=== PATIENT | male | born 1955 | race Hispanic/Latino ===

== ENCOUNTER 2019-02-05 11:41 | Emergency (ER) | payer OTHER ==
--- NOTE | 2019-02-05 13:42 | ULT ---
US Venous Doppler Lt Unilat History: Edema Comparison: None. Findings: Real-time grayscale, color, and spectral analysis of the left lower extremity venous system was performed. The common femoral, femoral, proximal portions greater saphenous and deep femoral veins as well as the popliteal and posterior tibial veins were interrogated. Normal flow, augmentation, and compression. Impression: No deep venous thrombosis. Mild lower extremity edema.
== END 2019-02-05 13:59 | disposition home or self-care (01) ==
LOC: SCSER 11:41
DX: M79.605 Pain in left leg (principal); F17.210 Nicotine dependence, cigarettes, uncomplicated; E78.5 Hyperlipidemia, unspecified; I10 Essential (primary) hypertension; Z71.6 Tobacco abuse counseling
CPT/HCPCS: 99406

== ENCOUNTER 2019-04-11 09:20 | Emergency (ER) | payer OTHER ==
[2019-04-11 10:30] LABS: #Basophils 0.1 thou/uL (0.0-0.2); #Eosinphils 0.2 thou/uL (0.0-0.7); #Lymphocytes 1.9 thou/uL (1.20-3.40); #Monocytes 0.7 thou/uL (0.11-0.59); #Neutrophils 8.4 thou/uL (1.40-6.50); %Basophils 0.5 % (0.0-1.0); %Eosinophils 1.7 % (0.0-10.0); %Lymphocytes 16.6 % (21.0-51.0); %Monocytes 6.3 % (0.0-10.0); %Neutrophils 74.8 % (42.0-75.0); Mean Corpuscular Hemoglobin 31.8 pg (27.0-31.0); Mean Corpuscular Volume 93.4 fL (78.0-98.0); Mean Platelet Volume 7.4 fL (7.4-10.4); Platelet Count 355 thou/uL (130-400); RBC Distribution Width 11.9 % (11.5-14.5); Red Blood Cell (RBC) Count 3.78 mill/uL (4.70-6.10); White Blood Cell (WBC) Count 11.2 thou/uL (4.8-10.8)
[2019-04-11 10:41] LABS: Anion Gap 11 mmol/L (10-20); BUN (Urea Nitrogen) 9 mg/dL (8.4-25.7); Calc. Creatinine Clearance 0 mL/min (70-130); Calcium 8.9 mg/dL (7.8-10.44); Carbon Dioxide 26 mmol/L (23-31); Chloride 104 mmol/L (98-107); Estimated GFR-MDRD Greater than 90; Glucose 125 mg/dL (80-115); Potassium 3.8 mmol/L (3.5-5.1); Sodium 137 mmol/L (136-145)
[2019-04-11 11:09] LABS: Bilirubin Small (Negative); Blood, Urine Large (Negative); Glucose, Urine (Dipstick) Negative (Negative); Leukocyte Trace (Negative); Nitrite Negative (Negative); Protein, Urine (Dipstick) > or equal to 300 mg/dL (Neg-Trace)
[2019-04-11 11:14] LABS: Clarity Cloudy (Clear)
[2019-04-11 11:27] LABS: RBC/HPF Greater than 50 HPF (0-3)
[2019-04-11 11:28] LABS: Bacteria/HPF 2+ HPF (None Seen); Squamous Epithelial None Seen HPF (0-3)
[2019-04-11] MEDS ORDERED: Nitrofurantoin Macrocrystal 50 MG CAP PO SCH (12:15)
== END 2019-04-11 12:09 ==
LOC: ERS 09:20
DX: N39.0 Urinary tract infection, site not specified (principal); E78.5 Hyperlipidemia, unspecified; I10 Essential (primary) hypertension; Z87.891 Personal history of nicotine dependence
CPT/HCPCS: 36415; 51702; 80048; 81003; 81015; 85025; 87086

== ENCOUNTER 2021-05-03 08:35 | Inpatient (IN) | payer MEDICARE ==
[2021-05-03] MEDS ORDERED: Fentanyl 100 MCG/2 ML VIAL ONE (09:09)
[2021-05-03] MEDS ORDERED: Acetaminophen 500 MG TAB ONE (09:09)
[2021-05-03 09:49] LABS: Hemoglobin 17.1 g/dL (14.0-18.0); Mean Corpuscular HGB CONC 33.2 g/dL (32.0-36.0); Mean Corpuscular Hemoglobin 30.1 pg (27.0-31.0); Mean Corpuscular Volume 90.5 fL (78.0-98.0); RBC Distribution Width 12.6 % (11.5-14.5); Red Blood Cell (RBC) Count 5.67 mill/uL (4.70-6.10)
[2021-05-03 10:11] LABS: #Eosinphils 0.1 thou/uL (0.0-0.7); #Monocytes 1.5 thou/uL (0.11-0.59); #Neutrophils 12.7 thou/uL (1.40-6.50); %Basophils 0.2 % (0.0-1.0); %Eosinophils 0.6 % (0.0-10.0); %Lymphocytes 12.5 % (21.0-51.0); %Monocytes 9.2 % (0.0-10.0); %Neutrophils 77.6 % (42.0-75.0); Mean Platelet Volume 8.6 fL (7.4-10.4); Platelet Count 260 thou/uL (130-400); Platelet Morphology Comment Appears Adequate; White Blood Cell (WBC) Count 16.4 thou/uL (4.8-10.8)
[2021-05-03 10:56] LABS: Albumin 4.1 g/dL (3.4-4.8)
[2021-05-03 10:57] LABS: Chloride 102 mmol/L (98-107); Potassium 4.6 mmol/L (3.5-5.1); Sodium 136 mmol/L (136-145)
[2021-05-03 10:58] LABS: Calcium 9.1 mg/dL (7.8-10.44); Globulin 2.9 g/dL (2.4-3.5); Glucose 218 mg/dL (80-115)
[2021-05-03 11:00] LABS: Anion Gap 15 mmol/L (10-20); Bilirubin, Total 1.2 mg/dL (0.2-1.2); Carbon Dioxide 24 mmol/L (23-31)
[2021-05-03 11:01] LABS: Alkaline Phosphatase 111 U/L (40-110)
[2021-05-03 11:02] LABS: Calc. Creatinine Clearance 0 mL/min (70-130)
[2021-05-03 11:03] LABS: AST (SGOT) 14 U/L (5-34); BUN (Urea Nitrogen) 19 mg/dL (8.4-25.7)
[2021-05-03 11:04] LABS: ALT (SGPT) 27 U/L (8-55)
[2021-05-03] MEDS ORDERED: Lorazepam 2 MG/ML VIAL SLOW IVP PRN (11:20)
[2021-05-03] MEDS ORDERED: Dextrose 5% in Water 1,000 ML IV PRN ×2 (11:20→15:52)
[2021-05-03] MEDS ORDERED: Dextrose 50% Abboject 50 ML SYRINGE SLOW IVP PRN ×2 (11:20→15:52)
[2021-05-03] MEDS ORDERED: Ondansetron PF 4 MG/2 ML Vial IVP PRN (11:20)
[2021-05-03] MEDS ORDERED: Morphine 2 MG/ML VIAL SLOW IVP PRN (11:20)
[2021-05-03] MEDS ORDERED: traMADol HCl 50 MG TAB PO PRN (11:27)
[2021-05-03 16:41] LABS: SARS-CoV-2 NAA Rapid Test Not Detected (NotDetected)
[2021-05-03 17:29] VITALS: BMI 24.7
[2021-05-03] MEDS: Acetaminophen 500 MG TAB PO SCH ×3 (17:43→23:26)
[2021-05-03] MEDS: traMADol HCl 50 MG TAB PO SCH ×2 (17:44→19:36)
[2021-05-03] MEDS: Famotidine/PF 20 mg/2ml Vial SLOW IVP SCH (21:19)
[2021-05-04] MEDS: traMADol HCl 50 MG TAB PO SCH ×4 (00:03→16:46)
[2021-05-04] MEDS: Acetaminophen 500 MG TAB PO SCH ×4 (05:10→23:38)
[2021-05-04] MEDS: HumaLOG 300 UNITS/3 ML VIAL SC PRN (05:11)
[2021-05-04 05:18] LABS: #Basophils 0.1 thou/uL (0.0-0.2); #Eosinphils 0.1 thou/uL (0.0-0.7); #Lymphocytes 2.8 thou/uL (1.20-3.40); #Monocytes 1.2 thou/uL (0.11-0.59); #Neutrophils 7.5 thou/uL (1.40-6.50); %Basophils 0.5 % (0.0-1.0); %Lymphocytes 24.4 % (21.0-51.0); %Monocytes 9.9 % (0.0-10.0); %Neutrophils 64.3 % (42.0-75.0); Hemoglobin 16.3 g/dL (14.0-18.0); Mean Corpuscular HGB CONC 32.1 g/dL (32.0-36.0); Mean Corpuscular Hemoglobin 29.3 pg (27.0-31.0); Mean Corpuscular Volume 91.3 fL (78.0-98.0); Mean Platelet Volume 8.2 fL (7.4-10.4); Platelet Count 259 thou/uL (130-400); RBC Distribution Width 12.5 % (11.5-14.5); Red Blood Cell (RBC) Count 5.57 mill/uL (4.70-6.10); White Blood Cell (WBC) Count 11.6 thou/uL (4.8-10.8)
[2021-05-04 05:37] LABS: Anion Gap 12 mmol/L (10-20); BUN (Urea Nitrogen) 22 mg/dL (8.4-25.7); Calc. Creatinine Clearance 91 mL/min (70-130); Calcium 9.5 mg/dL (7.8-10.44); Carbon Dioxide 25 mmol/L (23-31); Chloride 104 mmol/L (98-107); Glucose 183 mg/dL (80-115); Potassium 4.1 mmol/L (3.5-5.1); Sodium 137 mmol/L (136-145)
[2021-05-04] MEDS ORDERED: hydrOXYzine 10 MG TAB PO PRN (06:50)
[2021-05-04] MEDS ORDERED: Aspirin Chewable 81 MG TAB PO SCH (09:00)
[2021-05-04] MEDS: Amlodipine 10 MG TAB PO SCH (12:13)
[2021-05-04] MEDS: Atorvastatin Calcium 40 MG TAB PO SCH (12:13)
[2021-05-04] MEDS: Citalopram 20 MG TAB PO SCH (12:14)
[2021-05-04] MEDS: Baclofen 10 MG TAB PO SCH ×3 (12:14→23:38)
[2021-05-04] MEDS: Famotidine/PF 20 mg/2ml Vial SLOW IVP SCH ×2 (12:14→23:38)
[2021-05-04] MEDS ORDERED: Fentanyl 100 MCG/2 ML VIAL ONE ×2 (19:43→22:14)
[2021-05-04] MEDS ORDERED: Phenylephrine 10 MG/ML VIAL ONE (20:08)
[2021-05-04] MEDS ORDERED: Glycopyrrolate 0.2 MG/ML 5 ML SYRINGE ONE (20:37)
[2021-05-04] MEDS ORDERED: PROPOFOL 200 MG/20 ML VIAL ONE (20:37)
[2021-05-04] MEDS ORDERED: Labetalol HCl 100 MG/20 ML VIAL ONE (20:37)
[2021-05-04] MEDS ORDERED: Rocuronium Bromide 10 MG/ML (10ML VIAL) ONE (20:37)
[2021-05-04] MEDS ORDERED: Ketorolac Tromethamine 30 MG/ML VIAL ONE (20:37)
[2021-05-04] MEDS ORDERED: Lidocaine 1% PF 5 ML VIAL ONE (20:37)
[2021-05-04] MEDS ORDERED: Dexamethasone 20 MG/5 ML VIAL ONE (20:37)
[2021-05-04] MEDS ORDERED: Esmolol 100 MG/10 ML VIAL ONE (20:37)
[2021-05-04] MEDS ORDERED: Ondansetron PF 4 MG/2 ML Vial ONE (20:37)
[2021-05-04] MEDS ORDERED: Neomycin-Polymyxin 1 ML AMP ONE (21:02)
[2021-05-04] MEDS ORDERED: HYDROmorphone 2 MG/ML VIAL ONE (21:14)
[2021-05-04] MEDS ORDERED: Tranexamic Acid 1,000 MG/10 ML VIAL ONE (21:14)
[2021-05-04] MEDS ORDERED: diphenhydrAMINE 25 MG CAP PO PRN (22:07)
[2021-05-04] MEDS ORDERED: Morphine 2 MG/ML VIAL SLOW IVP PRN (22:07)
[2021-05-04] MEDS ORDERED: Zolpidem Tartrate 5 MG TAB PO PRN (22:07)
[2021-05-04] MEDS ORDERED: Promethazine HCl 25 MG/ML VIAL IM PRN ×2 (22:07→22:08)
[2021-05-04] MEDS ORDERED: traMADol HCl 50 MG TAB PO PRN (22:07)
[2021-05-04] MEDS ORDERED: Morphine 4 MG/ML VIAL SLOW IVP PRN (22:07)
[2021-05-04] MEDS ORDERED: Ondansetron PF 4 MG/2 ML Vial IVP PRN (22:07)
[2021-05-04] MEDS ORDERED: Acetaminophen 325 MG TAB PO PRN (22:07)
[2021-05-04] MEDS ORDERED: HYDROmorphone 2 MG/ML VIAL SLOW IVP PRN (22:08)
[2021-05-04] MEDS ORDERED: PACU-Morphine 4MG/ML VIAL SLOW IVP PRN (22:08)
[2021-05-04] MEDS ORDERED: Promethazine HCl 25 MG/ML VIAL IVPB PRN (22:08)
[2021-05-04] MEDS ORDERED: Ondansetron HCl/PF 4 MG/2 ML Vial IVP PRN (22:08)
[2021-05-05] MEDS: traMADol HCl 50 MG TAB PO SCH ×5 (00:26→23:58)
[2021-05-05] MEDS: Acetaminophen 500 MG TAB PO SCH ×4 (05:03→21:12)
[2021-05-05] MEDS: CEFAZOLIN 2 GM in Premix Bag 1 BAG IVPB SCH ×2 (05:04→14:23)
[2021-05-05] MEDS: HumaLOG 300 UNITS/3 ML VIAL SC PRN ×3 (05:23→21:21)
[2021-05-05 06:07] LABS: Hemoglobin 15.2 g/dL (14.0-18.0); Mean Corpuscular HGB CONC 34.4 g/dL (32.0-36.0); Mean Corpuscular Hemoglobin 31.6 pg (27.0-31.0); Mean Platelet Volume 8.3 fL (7.4-10.4); Platelet Count 254 thou/uL (130-400); RBC Distribution Width 12.3 % (11.5-14.5); White Blood Cell (WBC) Count 12.5 thou/uL (4.8-10.8)
[2021-05-05] MEDS ORDERED: Acetaminophen 325 MG TAB PO PRN (06:24)
[2021-05-05] MEDS: Senokot S 8.6-50 MG TAB PO SCH ×2 (08:24→21:12)
[2021-05-05] MEDS: Famotidine/PF 20 mg/2ml Vial SLOW IVP SCH ×2 (08:24→21:12)
[2021-05-05] MEDS: Amlodipine 10 MG TAB PO SCH (08:25)
[2021-05-05] MEDS: Atorvastatin Calcium 40 MG TAB PO SCH (08:25)
[2021-05-05] MEDS: Baclofen 10 MG TAB PO SCH ×3 (08:25→21:12)
[2021-05-05] MEDS: Multivitamin W/ Minerals 1 TAB PO SCH (08:25)
[2021-05-05] MEDS: metFORMIN 500 MG TAB PO SCH ×2 (08:25→17:01)
[2021-05-05] MEDS: Clopidogrel Bisulfate 75 MG TAB PO SCH (08:25)
[2021-05-05] MEDS: Citalopram 20 MG TAB PO SCH (08:25)
[2021-05-05] MEDS: Ferrous Gluconate 324 MG TAB PO SCH ×2 (08:25→21:12)
[2021-05-05] MEDS ORDERED: Aspirin 81 mg Enteric Coated Tablet PO SCH (09:00)
[2021-05-05] MEDS ORDERED: Calcium Carbonate 500 MG ChewTAB PO PRN (16:42)
[2021-05-06] MEDS: Acetaminophen 500 MG TAB PO SCH ×3 (04:47→16:48)
[2021-05-06] MEDS: traMADol HCl 50 MG TAB PO SCH ×3 (05:29→20:14)
[2021-05-06] MEDS: HumaLOG 300 UNITS/3 ML VIAL SC PRN (05:30)
[2021-05-06 06:30] LABS: #Eosinphils 0.1 thou/uL (0.0-0.7); #Lymphocytes 2.8 thou/uL (1.20-3.40); #Monocytes 1.6 thou/uL (0.11-0.59); #Neutrophils 8.4 thou/uL (1.40-6.50); %Basophils 0.4 % (0.0-1.0); %Eosinophils 0.4 % (0.0-10.0); %Lymphocytes 21.5 % (21.0-51.0); %Neutrophils 65.7 % (42.0-75.0); Hemoglobin 14.9 g/dL (14.0-18.0); Mean Corpuscular HGB CONC 33.9 g/dL (32.0-36.0); Mean Corpuscular Hemoglobin 31.2 pg (27.0-31.0); Mean Platelet Volume 8.7 fL (7.4-10.4); Platelet Count 257 thou/uL (130-400); RBC Distribution Width 12.2 % (11.5-14.5); Red Blood Cell (RBC) Count 4.78 mill/uL (4.70-6.10); White Blood Cell (WBC) Count 12.8 thou/uL (4.8-10.8)
[2021-05-06] MEDS: Senokot S 8.6-50 MG TAB PO SCH (08:14)
[2021-05-06] MEDS: Clopidogrel Bisulfate 75 MG TAB PO SCH (08:14)
[2021-05-06] MEDS: Baclofen 10 MG TAB PO SCH ×2 (08:15→16:48)
[2021-05-06] MEDS: Citalopram 20 MG TAB PO SCH (08:15)
[2021-05-06] MEDS: metFORMIN 500 MG TAB PO SCH ×2 (08:15→18:00)
[2021-05-06] MEDS: Amlodipine 10 MG TAB PO SCH (08:15)
[2021-05-06] MEDS: Ferrous Gluconate 324 MG TAB PO SCH (08:15)
[2021-05-06] MEDS: Multivitamin W/ Minerals 1 TAB PO SCH (08:15)
[2021-05-06] MEDS: Famotidine/PF 20 mg/2ml Vial SLOW IVP SCH (08:16)
[2021-05-06] MEDS: Atorvastatin Calcium 40 MG TAB PO SCH (10:43)
[2021-05-06 16:12] VITALS: BP 118/76; TEMP 98
[2021-05-06] MEDS ORDERED: traMADol HCl 50 MG TAB PO PRN (16:49)
== END 2021-05-06 20:18 | DRG 522 ==
LOC: ERS 08:35 → SURG B 11:20
PROVIDERS: ADMIT Specialist; ATTEND Specialist
PROC: 0SRS0JA Replacement of Left Hip Joint, Femoral Surface with Synthetic Substitute, Uncemented, Open Approach (ICD-10-PCS; principal; 2021-05-04)
DX: S72.002A Fracture of unspecified part of neck of left femur, initial encounter for closed fracture (principal); I69.354 Hemiplegia and hemiparesis following cerebral infarction affecting left non-dominant side; I25.10 Atherosclerotic heart disease of native coronary artery without angina pectoris; W18.30XA Fall on same level, unspecified, initial encounter; Z79.82 Long term (current) use of aspirin; Z79.84 Long term (current) use of oral hypoglycemic drugs; Z79.02 Long term (current) use of antithrombotics/antiplatelets; Z79.899 Other long term (current) drug therapy; Z95.5 Presence of coronary angioplasty implant and graft; Z98.890 Other specified postprocedural states; Y92.129 Unspecified place in nursing home as the place of occurrence of the external cause
CPT/HCPCS: 36415; 36416; 70450; 71045; 80048; 80053; 83605; 84484; 85025; 85027; 87040; 93005; 93306; G0390; J0690; J1100; J1170; J1815; J1885; J2370; J2405; J2704; J3010; S0028; U0002

== ENCOUNTER 2023-05-08 20:08 | Inpatient (IN) | payer MEDICARE ==
[2023-05-08] MEDS ORDERED: LORazepam 2 MG/ML SYR.(CARPUJECT) ONE (20:25)
[2023-05-08] MEDS ORDERED: levETIRAcetam 500 MG/5 ML VIAL ONE (20:31)
[2023-05-08 20:45] LABS: #Basophils 0.1 thou/uL (0.0-0.2); #Eosinphils 0.3 thou/uL (0.0-0.7); #Monocytes 1.2 thou/uL (0.11-0.59); %Basophils 0.6 % (0.0-1.0); %Eosinophils 1.8 % (0.0-10.0); %Lymphocytes 36.7 % (21.0-51.0); %Monocytes 8.5 % (0.0-10.0); %Neutrophils 51.8 % (42.0-75.0); Hematocrit 47.9 % (42.0-52.0); Hemoglobin 15.7 g/dL (14.0-18.0); Mean Corpuscular HGB CONC 32.8 g/dL (32.0-36.0); Mean Corpuscular Hemoglobin 29.3 pg (27.0-31.0); Mean Corpuscular Volume 89.4 fl (78.0-98.0); Mean Platelet Volume 10.5 fL (7.4-10.4); Platelet Count 330 10x3/uL (130-400); RBC Distribution Width 13.5 % (11.5-14.5); Red Blood Cell (RBC) Count 5.36 mill/uL (4.70-6.10); White Blood Cell (WBC) Count 13.5 10x3/uL (4.8-10.8)
[2023-05-08 21:10] LABS: ALT (SGPT) 23 U/L (8-55); AST (SGOT) 13 U/L (5-34); Albumin 4.3 g/dL (3.4-4.8); Alkaline Phosphatase 117 U/L (40-110); Anion Gap 18 mmol/L (10-20); BUN (Urea Nitrogen) 10 mg/dL (8.4-25.7); Bilirubin, Total 0.4 mg/dL (0.2-1.2); Calc. Creatinine Clearance 0 mL/min (70-130); Calcium 9.6 mg/dL (7.8-10.44); Carbon Dioxide 20 mmol/L (23-31); Chloride 104 mmol/L (98-107); Estimated GFR 96; Glucose 144 mg/dL (80-115); Potassium 3.2 mmol/L (3.5-5.1); Protein, Total 7.3 g/dL (5.8-8.1); Sodium 139 mmol/L (136-145)
[2023-05-08 21:28] LABS: Bacteria/HPF 2+ HPF (None Seen); Bilirubin Negative (Negative); Blood, Urine 1+ (Negative); CAUTI Indications for Culture Fever or rigors; Clarity Turbid (Clear); Glucose, Urine (Dipstick) Normal (Negative); Ketone, Urine Negative (Negative); Leukocyte 500 Leu/uL (Negative); Nitrite Negative (Negative); Protein, Urine (Dipstick) 30 mg/dL (Neg-Trace); Specific Gravity, Urine 1.015 (1.002-1.036); Squamous Epithelial None Seen HPF (0-3); Urobilinogen Normal mg/dL (Less than 2); WBC/HPF Greater than 50 HPF (0-3)
[2023-05-08 21:29] LABS: Urine Culture Reflex Yes Yes
[2023-05-08] MEDS ORDERED: cefTRIAXone (ROCEPHIN) 2 GM VIAL ONE (21:32)
[2023-05-08] MEDS ORDERED: Lorazepam 2 MG/ML VIAL SLOW IVP PRN (23:44)
[2023-05-08] MEDS ORDERED: Sodium Chloride 0.9% 1,000 ML IV SCH (23:45)
[2023-05-08 23:52] VITALS: BMI 27.8
[2023-05-09] MEDS ORDERED: Ondansetron PF 4 MG/2 ML Vial IVP PRN (00:20)
[2023-05-09] MEDS ORDERED: Ondansetron ODT 4 MG TAB PO PRN (00:20)
[2023-05-09] MEDS ORDERED: Acetaminophen 325 MG TAB PO PRN (00:20)
[2023-05-09] MEDS ORDERED: Electrolyte Replacement Protocol 1 EACH FS SCH (00:24)
[2023-05-09] MEDS ORDERED: Lactated Ringer's 1,000 ML IV SCH (00:30)
[2023-05-09 00:43] LABS: Hemoglobin A1c 7.1 % (4.0-6.0)
[2023-05-09 00:50] LABS: Lactic Acid 0.8 mmol/L (0.5-2.2)
[2023-05-09 06:26] LABS: #Basophils 0.1 thou/uL (0.0-0.2); #Eosinphils 0.2 thou/uL (0.0-0.7); #Monocytes 0.9 thou/uL (0.11-0.59); #Neutrophils 6.5 thou/uL (1.40-6.50); %Basophils 0.6 % (0.0-1.0); %Eosinophils 1.6 % (0.0-10.0); %Lymphocytes 28.8 % (21.0-51.0); %Monocytes 8.4 % (0.0-10.0); Hemoglobin 14.2 g/dL (14.0-18.0); Mean Corpuscular Hemoglobin 29.3 pg (27.0-31.0); Mean Corpuscular Volume 88.8 fl (78.0-98.0); Mean Platelet Volume 10.5 fL (7.4-10.4); Platelet Count 286 10x3/uL (130-400); RBC Distribution Width 13.5 % (11.5-14.5); Red Blood Cell (RBC) Count 4.84 mill/uL (4.70-6.10); White Blood Cell (WBC) Count 10.8 10x3/uL (4.8-10.8)
[2023-05-09 06:52] LABS: Anion Gap 11 mmol/L (10-20); BUN (Urea Nitrogen) 8 mg/dL (8.4-25.7); Calc. Creatinine Clearance 112 mL/min (70-130); Carbon Dioxide 29 mmol/L (23-31); Chloride 107 mmol/L (98-107); Estimated GFR 99; Glucose 111 mg/dL (80-115); Potassium 3.5 mmol/L (3.5-5.1); Sodium 143 mmol/L (136-145)
[2023-05-09] MEDS: Famotidine/PF 20 mg/2ml Vial SLOW IVP SCH ×2 (07:36→21:34)
[2023-05-09] MEDS: Famotidine 20 MG TAB PO SCH ×2 (07:53→21:34)
[2023-05-09] MEDS: levETIRAcetam 500 MG TAB PO SCH ×2 (07:53→21:34)
[2023-05-09] MEDS ORDERED: Potassium Chloride 20 MEQ TAB PO SCH (08:00)
[2023-05-09] MEDS ORDERED: Iopamidol-370 76% 500 ML MDV (1 ML CHARGE) ONE (08:54)
[2023-05-09] MEDS: cefTRIAXone\\ROCEPHIN 1 GM in Sodium Chloride 0.9% 100 ML IVPB SCH (21:35)
[2023-05-10] MEDS: Atorvastatin Calcium 40 MG TAB PO SCH (08:26)
[2023-05-10] MEDS: Aspirin 81 mg Enteric Coated Tablet PO SCH (08:26)
[2023-05-10] MEDS: Amlodipine 10 MG TAB PO SCH (08:26)
[2023-05-10] MEDS: Citalopram 20 MG TAB PO SCH (08:28)
[2023-05-10] MEDS: Famotidine 20 MG TAB PO SCH ×2 (08:28→20:16)
[2023-05-10] MEDS: Clopidogrel Bisulfate 75 MG TAB PO SCH (08:28)
[2023-05-10] MEDS: levETIRAcetam 500 MG TAB PO SCH ×2 (08:28→20:15)
[2023-05-10] MEDS: Famotidine/PF 20 mg/2ml Vial SLOW IVP SCH ×2 (08:29→20:24)
[2023-05-10] MEDS ORDERED: metFORMIN 500 MG TAB PO SCH (17:00)
[2023-05-10] MEDS: cefTRIAXone\\ROCEPHIN 1 GM in Sodium Chloride 0.9% 100 ML IVPB SCH (20:16)
[2023-05-11] MEDS ORDERED: Docusate 100 MG CAP PO PRN (07:28)
[2023-05-11] MEDS ORDERED: Lorazepam 2 MG/ML VIAL SLOW IVP PRN (07:30)
[2023-05-11 07:58] LABS: #Basophils 0.1 thou/uL (0.0-0.2); #Eosinphils 0.2 thou/uL (0.0-0.7); #Monocytes 0.6 thou/uL (0.11-0.59); #Neutrophils 4.6 thou/uL (1.40-6.50); %Basophils 0.6 % (0.0-1.0); %Eosinophils 2.3 % (0.0-10.0); %Lymphocytes 30.2 % (21.0-51.0); %Monocytes 8.2 % (0.0-10.0); %Neutrophils 58.4 % (42.0-75.0); Hemoglobin 14.3 g/dL (14.0-18.0); Mean Corpuscular HGB CONC 33.3 g/dL (32.0-36.0); Mean Corpuscular Hemoglobin 29.5 pg (27.0-31.0); Mean Corpuscular Volume 88.7 fl (78.0-98.0); Mean Platelet Volume 10.4 fL (7.4-10.4); Platelet Count 296 10x3/uL (130-400); RBC Distribution Width 13.3 % (11.5-14.5); Red Blood Cell (RBC) Count 4.85 mill/uL (4.70-6.10); White Blood Cell (WBC) Count 7.8 10x3/uL (4.8-10.8)
[2023-05-11 08:29] LABS: Anion Gap 11 mmol/L (10-20); BUN (Urea Nitrogen) 13 mg/dL (8.4-25.7); Calc. Creatinine Clearance 89 mL/min (70-130); Calcium 8.8 mg/dL (7.8-10.44); Carbon Dioxide 26 mmol/L (23-31); Chloride 107 mmol/L (98-107); Estimated GFR 93; Glucose 153 mg/dL (80-115); Potassium 3.9 mmol/L (3.5-5.1); Sodium 140 mmol/L (136-145)
[2023-05-11] MEDS: Citalopram 20 MG TAB PO SCH (11:18)
[2023-05-11] MEDS: Amlodipine 10 MG TAB PO SCH (11:19)
[2023-05-11] MEDS: Atorvastatin Calcium 40 MG TAB PO SCH (11:19)
[2023-05-11] MEDS: levETIRAcetam 500 MG TAB PO SCH ×2 (11:19→20:46)
[2023-05-11] MEDS: Clopidogrel Bisulfate 75 MG TAB PO SCH (11:19)
[2023-05-11] MEDS: Aspirin 81 mg Enteric Coated Tablet PO SCH (11:20)
[2023-05-11] MEDS: metFORMIN 500 MG TAB PO SCH (17:06)
[2023-05-11] MEDS: cefTRIAXone\\ROCEPHIN 1 GM in Sodium Chloride 0.9% 100 ML IVPB SCH (20:46)
[2023-05-12] MEDS: metFORMIN 500 MG TAB PO SCH (07:55)
[2023-05-12] MEDS: Clopidogrel Bisulfate 75 MG TAB PO SCH (07:55)
[2023-05-12] MEDS: Amlodipine 10 MG TAB PO SCH (07:55)
[2023-05-12] MEDS: Citalopram 20 MG TAB PO SCH (07:55)
[2023-05-12] MEDS: levETIRAcetam 500 MG TAB PO SCH (07:55)
[2023-05-12] MEDS: Aspirin 81 mg Enteric Coated Tablet PO SCH (07:55)
[2023-05-12] MEDS: Atorvastatin Calcium 40 MG TAB PO SCH (07:56)
[2023-05-12 12:10] VITALS: TEMP 98.5
[2023-05-12] MEDS ORDERED: cefTRIAXone\\ROCEPHIN 1 GM in Sodium Chloride 0.9% 100 ML IVPB SCH (14:00)
[2023-05-12 15:55] VITALS: BP 142/83
== END 2023-05-12 17:20 | DRG 56 ==
LOC: ERS 20:08 → IMCU/EMU 22:43
PROVIDERS: ADMIT Student in an Organized Health Care Education/Training Program; ATTEND Family Medicine
PROC: 3E03329 Introduction of Other Anti-infective into Peripheral Vein, Percutaneous Approach (ICD-10-PCS; 2023-05-08)
PROC: 4A00X4Z Measurement of Central Nervous Electrical Activity, External Approach (ICD-10-PCS; principal; 2023-05-10)
DX: I69.398 Other sequelae of cerebral infarction (principal); A41.9 Sepsis, unspecified organism; E87.20 Acidosis, unspecified; N39.0 Urinary tract infection, site not specified; G40.909 Epilepsy, unspecified, not intractable, without status epilepticus; Z51.5 Encounter for palliative care; E78.5 Hyperlipidemia, unspecified; I10 Essential (primary) hypertension; E11.9 Type 2 diabetes mellitus without complications; E87.6 Hypokalemia; G93.89 Other specified disorders of brain; F03.90 Unspecified dementia, unspecified severity, without behavioral disturbance, psychotic disturbance, mood disturbance, and anxiety; F39 Unspecified mood [affective] disorder; K21.9 Gastro-esophageal reflux disease without esophagitis; I08.1 Rheumatic disorders of both mitral and tricuspid valves; I08.3 Combined rheumatic disorders of mitral, aortic and tricuspid valves; Z79.82 Long term (current) use of aspirin; Z79.899 Other long term (current) drug therapy; Z79.84 Long term (current) use of oral hypoglycemic drugs; Z79.02 Long term (current) use of antithrombotics/antiplatelets; Z95.5 Presence of coronary angioplasty implant and graft
CPT/HCPCS: 36415; 51701; 70450; 70496; 70498; 70551; 80048; 80053; 81001; 82550; 83036; 83605; 84145; 84146; 85025; 87040; 87077; 87086; 87186; 93005; 93306; 94760; 95711; 95819; 95957; 96365; 96375; J0696; J1953; J2060; J3490; J7120; Q9967

== ENCOUNTER 2023-05-14 00:41 | Emergency (ER) | payer MEDICARE ==
[2023-05-14 01:33] LABS: #Basophils 0.1 thou/uL (0.0-0.2); #Eosinphils 0.2 thou/uL (0.0-0.7); #Monocytes 0.8 thou/uL (0.11-0.59); #Neutrophils 7.5 thou/uL (1.40-6.50); %Basophils 0.7 % (0.0-1.0); %Eosinophils 1.8 % (0.0-10.0); %Monocytes 7.4 % (0.0-10.0); %Neutrophils 65.7 % (42.0-75.0); Hematocrit 43.9 % (42.0-52.0); Hemoglobin 14.7 g/dL (14.0-18.0); Mean Corpuscular HGB CONC 33.5 g/dL (32.0-36.0); Mean Corpuscular Hemoglobin 29.5 pg (27.0-31.0); Platelet Count 314 10x3/uL (130-400); RBC Distribution Width 13.2 % (11.5-14.5); Red Blood Cell (RBC) Count 4.99 mill/uL (4.70-6.10); White Blood Cell (WBC) Count 11.3 10x3/uL (4.8-10.8)
[2023-05-14 01:58] LABS: ALT (SGPT) 28 U/L (8-55); AST (SGOT) 15 U/L (5-34); Albumin 3.8 g/dL (3.4-4.8); Alkaline Phosphatase 116 U/L (40-110); Anion Gap 14 mmol/L (10-20); BUN (Urea Nitrogen) 11 mg/dL (8.4-25.7); Bilirubin, Total 0.4 mg/dL (0.2-1.2); Calc. Creatinine Clearance 0 mL/min (70-130); Calcium 9.1 mg/dL (7.8-10.44); Carbon Dioxide 24 mmol/L (23-31); Chloride 106 mmol/L (98-107); Estimated GFR 95; Globulin 2.9 g/dL (2.4-3.5); Glucose 187 mg/dL (80-115); Potassium 3.7 mmol/L (3.5-5.1); Protein, Total 6.7 g/dL (5.8-8.1); Sodium 140 mmol/L (136-145)
[2023-05-14] MEDS ORDERED: levETIRAcetam 500 MG/5 ML VIAL ONE (05:38)
[2023-05-14 06:50] LABS: Bacteria/HPF None Seen HPF (None Seen); Bilirubin Negative (Negative); Blood, Urine Negative (Negative); CAUTI Indications for Culture Alt mental st,lethar; Clarity Clear (Clear); Glucose, Urine (Dipstick) Normal (Negative); Ketone, Urine Negative (Negative); Leukocyte 25 Leu/uL (Negative); Nitrite Negative (Negative); Protein, Urine (Dipstick) Negative (Neg-Trace); RBC/HPF 0-3 HPF (0-3); Specific Gravity, Urine 1.015 (1.002-1.036); Squamous Epithelial 0-3 HPF (0-3); Urobilinogen Normal mg/dL (Less than 2); pH, Urine 5.5 (5.0-9.0)
[2023-05-14 06:52] LABS: Urine Culture Reflex No No
== END 2023-05-14 09:07 | disposition home or self-care (01) ==
LOC: ERS 00:41
DX: R56.9 Unspecified convulsions (principal); E78.5 Hyperlipidemia, unspecified; I10 Essential (primary) hypertension; Z79.84 Long term (current) use of oral hypoglycemic drugs; Z79.82 Long term (current) use of aspirin; Z79.899 Other long term (current) drug therapy
CPT/HCPCS: 70450; 80053; 81001; 85025; 87086; 93005; J1953; 36415; 96365

== ENCOUNTER 2023-05-15 08:32 | Emergency (ER) | payer MEDICARE ==
[2023-05-15 09:20] LABS: #Basophils 0.1 thou/uL (0.0-0.2); #Eosinphils 0.1 thou/uL (0.0-0.7); #Monocytes 0.6 thou/uL (0.11-0.59); #Neutrophils 7.7 thou/uL (1.40-6.50); %Basophils 0.5 % (0.0-1.0); %Eosinophils 1.2 % (0.0-10.0); %Lymphocytes 21.5 % (21.0-51.0); %Monocytes 5.9 % (0.0-10.0); %Neutrophils 70.4 % (42.0-75.0); Hematocrit 48.5 % (42.0-52.0); Hemoglobin 16.5 g/dL (14.0-18.0); Mean Corpuscular Hemoglobin 29.6 pg (27.0-31.0); Mean Corpuscular Volume 86.9 fl (78.0-98.0); Mean Platelet Volume 10.2 fL (7.4-10.4); Platelet Count 356 10x3/uL (130-400); RBC Distribution Width 13.3 % (11.5-14.5); Red Blood Cell (RBC) Count 5.58 mill/uL (4.70-6.10); White Blood Cell (WBC) Count 10.9 10x3/uL (4.8-10.8)
[2023-05-15] MEDS ORDERED: levETIRAcetam 500 MG/5 ML VIAL ONE (09:29)
[2023-05-15 09:38] LABS: ALT (SGPT) 28 U/L (8-55); AST (SGOT) 15 U/L (5-34); Albumin 4.4 g/dL (3.4-4.8); Alkaline Phosphatase 136 U/L (40-110); Anion Gap 16 mmol/L (10-20); BUN (Urea Nitrogen) 11 mg/dL (8.4-25.7); Bilirubin, Total 0.5 mg/dL (0.2-1.2); Calc. Creatinine Clearance 0 mL/min (70-130); Calcium 9.9 mg/dL (7.8-10.44); Carbon Dioxide 25 mmol/L (23-31); Chloride 103 mmol/L (98-107); Estimated GFR 92; Globulin 3.3 g/dL (2.4-3.5); Glucose 176 mg/dL (80-115); Potassium 4.2 mmol/L (3.5-5.1); Protein, Total 7.7 g/dL (5.8-8.1); Sodium 140 mmol/L (136-145)
[2023-05-15] MEDS ORDERED: LORazepam 2 MG/ML SYR.(CARPUJECT) ONE (12:05)
== END 2023-05-15 12:29 | disposition short-term general hospital (02) ==
LOC: ERS 08:32
DX: R56.9 Unspecified convulsions (principal); E11.9 Type 2 diabetes mellitus without complications; Z79.84 Long term (current) use of oral hypoglycemic drugs; Z79.82 Long term (current) use of aspirin; Z79.899 Other long term (current) drug therapy
CPT/HCPCS: 80053; 85025; 93005; J1953; J2060; 36415; 96365; 96375

== ENCOUNTER 2023-09-06 15:24 | Inpatient (IN) | payer MEDICARE ==
[2023-09-06 16:00] LABS: #Monocytes 0.4 thou/uL (0.11-0.59); #Neutrophils 15.4 thou/uL (1.40-6.50); %Basophils 0.2 % (0.0-1.0); %Lymphocytes 6.4 % (21.0-51.0); %Monocytes 2.4 % (0.0-10.0); %Neutrophils 90.6 % (42.0-75.0); Hematocrit 51.5 % (42.0-52.0); Hemoglobin 16.5 g/dL (14.0-18.0); Mean Corpuscular Hemoglobin 28.4 pg (27.0-31.0); Mean Corpuscular Volume 88.8 fl (78.0-98.0); Mean Platelet Volume 10.2 fL (7.4-10.4); Platelet Count 467 10x3/uL (130-400); RBC Distribution Width 14.8 % (11.5-14.5)
[2023-09-06 16:33] LABS: ALT (SGPT) 22 U/L (8-55); AST (SGOT) 19 U/L (5-34); Albumin 4.2 g/dL (3.4-4.8); Alkaline Phosphatase 116 U/L (40-110); Anion Gap 16 mmol/L (10-20); BUN (Urea Nitrogen) 22 mg/dL (8.4-25.7); Bilirubin, Total Less than 0.2 mg/dL (0.2-1.2); CK (CPK) 53 U/L (30-200); Calc. Creatinine Clearance 0 mL/min (70-130); Calcium 9.5 mg/dL (7.8-10.44); Carbon Dioxide 24 mmol/L (23-31); Chloride 106 mmol/L (98-107); Estimated GFR 94; Globulin 3.5 g/dL (2.4-3.5); Glucose 145 mg/dL (80-115); Potassium 3.8 mmol/L (3.5-5.1); Protein, Total 7.7 g/dL (5.8-8.1); Sodium 142 mmol/L (136-145)
[2023-09-06 16:40] LABS: Critical Call Chem Troponin I NUR.LA22@1639; Troponin I 0.246 ng/mL (< 0.028)
[2023-09-06 17:05] LABS: Bilirubin Negative (Negative); Blood, Urine Negative (Negative); CAUTI Indications for Culture Alt mental st,lethar; Clarity Clear (Clear); Glucose, Urine (Dipstick) Normal (Negative); Ketone, Urine Trace mg/dL (Negative); Leukocyte 250 Leu/uL (Negative); Nitrite 2+ (Negative); Protein, Urine (Dipstick) 100 mg/dL (Neg-Trace); RBC/HPF 0-3 HPF (0-3); Specific Gravity, Urine 1.014 (1.002-1.036); Squamous Epithelial None Seen HPF (0-3); Urobilinogen Normal mg/dL (Less than 2)
[2023-09-06 17:08] LABS: Bacteria/HPF 1+ HPF (None Seen); Urine Culture Reflex Yes Yes
[2023-09-06] MEDS ORDERED: Docusate 100 MG CAP PO PRN (18:18)
[2023-09-06] MEDS ORDERED: Acetaminophen 500 MG TAB PO PRN (18:18)
[2023-09-06] MEDS ORDERED: Dextrose 5% in Water 1,000 ML IV PRN (18:19)
[2023-09-06] MEDS ORDERED: Glucagon 1 MG/ML KIT IM PRN (18:19)
[2023-09-06] MEDS ORDERED: Dextrose 50% Abboject 50 ML SYRINGE SLOW IVP PRN (18:19)
[2023-09-06] MEDS ORDERED: Ondansetron PF 4 MG/2 ML Vial IVP PRN (18:29)
[2023-09-06] MEDS ORDERED: HumaLOG 300 UNITS/3 ML VIAL SC PRN (18:29)
[2023-09-06] MEDS ORDERED: Loperamide HCl 2 MG CAP PO PRN (18:47)
[2023-09-06] MEDS ORDERED: Piperacillin/Tazobactam 3.375 GM in Sodium Chloride 0.9% 100 ML IVPB SCH ×2 (20:30→23:59)
[2023-09-06] MEDS ORDERED: Heparin 5,000 UNITS/ML VIAL SC SCH (21:00)
[2023-09-06 21:37] LABS: Critical Call Chem Troponin I NUR.NKE@2136; Troponin I 1.612 ng/mL (< 0.028)
[2023-09-06] MEDS ORDERED: Enoxaparin 80 MG (0.8 mL) SYRINGE ONE (23:09)
[2023-09-06] MEDS ORDERED: Aspirin 325 MG TAB ONE (23:09)
[2023-09-06] MEDS ORDERED: levETIRAcetam 500 MG TAB ONE (23:09)
[2023-09-06] MEDS ORDERED: Piperacillin/Tazobactam 4.5 GM VIAL ONE (23:09)
[2023-09-06] MEDS ORDERED: Sodium Chloride 0.9% 100 ML ONE (23:12)
[2023-09-06] MEDS: levETIRAcetam 500 MG TAB PO SCH (23:38)
[2023-09-06] MEDS ORDERED: Enoxaparin 80 MG (0.8 mL) SYRINGE SC SCH (23:45)
[2023-09-07] MEDS ORDERED: Enoxaparin 80 MG (0.8 mL) SYRINGE ONE (00:50)
[2023-09-07] MEDS ORDERED: Piperacillin/Tazobactam 3.375 GM VIAL ONE (03:08)
[2023-09-07] MEDS ORDERED: Sodium Chloride 0.9% 100 ML ONE (03:08)
[2023-09-07] MEDS: Piperacillin/Tazobactam 3.375 GM in Sodium Chloride 0.9% 100 ML IVPB SCH ×3 (03:20→17:33)
[2023-09-07 03:46] LABS: Critical Call Chem Troponin I NUR.NKE@0346; Troponin I 4.737 ng/mL (< 0.028)
[2023-09-07 05:48] LABS: #Basophils 0.1 thou/uL (0.0-0.2); #Eosinphils 0.2 thou/uL (0.0-0.7); #Monocytes 0.8 thou/uL (0.11-0.59); #Neutrophils 7.7 thou/uL (1.40-6.50); %Basophils 0.6 % (0.0-1.0); %Eosinophils 1.3 % (0.0-10.0); %Lymphocytes 24.9 % (21.0-51.0); %Monocytes 7.1 % (0.0-10.0); %Neutrophils 65.8 % (42.0-75.0); Hematocrit 47.7 % (42.0-52.0); Hemoglobin 15.1 g/dL (14.0-18.0); Mean Corpuscular HGB CONC 31.7 g/dL (32.0-36.0); Mean Corpuscular Volume 88.5 fl (78.0-98.0); RBC Distribution Width 14.8 % (11.5-14.5); Red Blood Cell (RBC) Count 5.39 mill/uL (4.70-6.10); White Blood Cell (WBC) Count 11.7 10x3/uL (4.8-10.8)
[2023-09-07 05:52] LABS: Platelet Count 315 10x3/uL (130-400)
[2023-09-07 06:48] LABS: Anion Gap 15 mmol/L (10-20); BUN (Urea Nitrogen) 21 mg/dL (8.4-25.7); Calc. Creatinine Clearance 43 mL/min (70-130); Calcium 8.9 mg/dL (7.8-10.44); Carbon Dioxide 21 mmol/L (23-31); Chloride 108 mmol/L (98-107); Estimated GFR 100; Glucose 78 mg/dL (80-115); Potassium 3.4 mmol/L (3.5-5.1); Sodium 141 mmol/L (136-145)
[2023-09-07] MEDS ORDERED: Citalopram 20 MG TAB PO SCH (09:00)
[2023-09-07] MEDS: metFORMIN 500 MG TAB PO SCH ×2 (10:31→17:28)
[2023-09-07] MEDS: Aspirin 325 MG TAB PO SCH (10:32)
[2023-09-07] MEDS: Enoxaparin 80 MG (0.8 mL) SYRINGE SC SCH ×2 (10:32→20:41)
[2023-09-07] MEDS: Atorvastatin Calcium 40 MG TAB PO SCH (10:32)
[2023-09-07] MEDS: levETIRAcetam 500 MG TAB PO SCH (10:32)
[2023-09-07] MEDS: Amlodipine 10 MG TAB PO SCH (10:32)
[2023-09-07] MEDS ORDERED: FLU VACC QS2023(65UP)/MF59C/PF 60 MCG/0.5 ML SYRINGE IM ONE (11:45)
[2023-09-07] MEDS: Valproate Sodium 250 mg/5 ml UD Cup PO SCH ×2 (14:42→20:43)
[2023-09-07 14:50] LABS: Critical Call Chem Troponin I @DECREASING; Troponin I 4.533 ng/mL (< 0.028)
[2023-09-07] MEDS: Clopidogrel Bisulfate 75 MG TAB PO SCH (17:33)
[2023-09-07] MEDS: levETIRAcetam 500 mg/5 ml Oral Solution PO SCH (20:44)
[2023-09-07] MEDS: Lacosamide 50 mg Tablet PO SCH (20:50)
[2023-09-07] MEDS ORDERED: Famotidine 20 MG TAB PO SCH (21:00)
[2023-09-08] MEDS ORDERED: Melatonin 3 MG TAB PO PRN (00:52)
[2023-09-08] MEDS ORDERED: Ipratropium/Albuterol 3 ML NEB NEB SCH (01:00)
[2023-09-08] MEDS: Piperacillin/Tazobactam 3.375 GM in Sodium Chloride 0.9% 100 ML IVPB SCH ×3 (03:20→17:30)
[2023-09-08 06:34] LABS: #Basophils 0.1 thou/uL (0.0-0.2); #Eosinphils 0.2 thou/uL (0.0-0.7); #Monocytes 0.4 thou/uL (0.11-0.59); #Neutrophils 3.3 thou/uL (1.40-6.50); %Basophils 0.7 % (0.0-1.0); %Eosinophils 2.4 % (0.0-10.0); %Lymphocytes 45.2 % (21.0-51.0); %Monocytes 5.5 % (0.0-10.0); %Neutrophils 46.1 % (42.0-75.0); Hematocrit 47.6 % (42.0-52.0); Hemoglobin 15.1 g/dL (14.0-18.0); Mean Corpuscular HGB CONC 31.7 g/dL (32.0-36.0); Mean Corpuscular Hemoglobin 28.8 pg (27.0-31.0); Mean Corpuscular Volume 90.8 fl (78.0-98.0); Mean Platelet Volume 10.8 fL (7.4-10.4); Platelet Count 377 10x3/uL (130-400); RBC Distribution Width 14.9 % (11.5-14.5); Red Blood Cell (RBC) Count 5.24 mill/uL (4.70-6.10); White Blood Cell (WBC) Count 7.2 10x3/uL (4.8-10.8)
[2023-09-08] MEDS: Valproate Sodium 250 mg/5 ml UD Cup PO SCH ×3 (06:34→23:03)
[2023-09-08 07:03] LABS: Anion Gap 14 mmol/L (10-20); BUN (Urea Nitrogen) 22 mg/dL (8.4-25.7); Calc. Creatinine Clearance 85 mL/min (70-130); Calcium 8.9 mg/dL (7.8-10.44); Carbon Dioxide 27 mmol/L (23-31); Chloride 105 mmol/L (98-107); Estimated GFR 96; Glucose 81 mg/dL (80-115); Potassium 3.2 mmol/L (3.5-5.1); Sodium 143 mmol/L (136-145)
[2023-09-08] MEDS: Aspirin 325 MG TAB PO SCH (09:03)
[2023-09-08] MEDS: Amlodipine 10 MG TAB PO SCH (09:03)
[2023-09-08] MEDS: Thiamine 100 MG TAB PO SCH (09:03)
[2023-09-08] MEDS: Escitalopram Oxalate 10 mg Tablet PO SCH (09:03)
[2023-09-08] MEDS: Clopidogrel Bisulfate 75 MG TAB PO SCH (09:03)
[2023-09-08] MEDS: Famotidine 20 MG TAB PO SCH ×2 (09:03→23:02)
[2023-09-08] MEDS: Atorvastatin Calcium 40 MG TAB PO SCH (09:03)
[2023-09-08] MEDS: levETIRAcetam 500 mg/5 ml Oral Solution PO SCH ×2 (09:03→23:01)
[2023-09-08] MEDS: Enoxaparin 80 MG (0.8 mL) SYRINGE SC SCH ×2 (09:04→23:02)
[2023-09-08 09:49] VITALS: BMI 22.5
[2023-09-08] MEDS ORDERED: VANCOMYCIN IVPB PRN (09:54)
[2023-09-08] MEDS ORDERED: Vancomycin (BATCH) 1.5 GM in Premix 1 BAG IVPB SCH (10:15)
[2023-09-08] MEDS: Lacosamide 50 mg Tablet PO SCH ×2 (10:40→23:03)
[2023-09-08] MEDS ORDERED: Polyethylene Glycol 3350 17 GM Packet PO PRN (12:41)
[2023-09-08] MEDS ORDERED: Docusate 100 MG CAP PO PRN (12:41)
[2023-09-08] MEDS: Vancomycin 1 GM in Premix 1 BAG IVPB SCH (23:13)
[2023-09-09] MEDS: Piperacillin/Tazobactam 3.375 GM in Sodium Chloride 0.9% 100 ML IVPB SCH ×3 (02:26→18:00)
[2023-09-09] MEDS: Valproate Sodium 250 mg/5 ml UD Cup PO SCH ×3 (05:22→22:19)
[2023-09-09] MEDS: Atorvastatin Calcium 40 MG TAB PO SCH (09:10)
[2023-09-09] MEDS: levETIRAcetam 500 mg/5 ml Oral Solution PO SCH ×2 (09:10→21:15)
[2023-09-09] MEDS: Aspirin 325 MG TAB PO SCH (09:10)
[2023-09-09] MEDS: Enoxaparin 80 MG (0.8 mL) SYRINGE SC SCH ×2 (09:10→21:14)
[2023-09-09] MEDS: Escitalopram Oxalate 10 mg Tablet PO SCH (09:10)
[2023-09-09] MEDS: Vancomycin 1 GM in Premix 1 BAG IVPB SCH (09:10)
[2023-09-09] MEDS: Clopidogrel Bisulfate 75 MG TAB PO SCH (09:11)
[2023-09-09] MEDS: Amlodipine 10 MG TAB PO SCH (09:11)
[2023-09-09] MEDS: Famotidine 20 MG TAB PO SCH ×2 (09:11→21:15)
[2023-09-09] MEDS: Thiamine 100 MG TAB PO SCH (09:11)
[2023-09-09] MEDS: Lacosamide 50 mg Tablet PO SCH ×2 (10:56→22:18)
[2023-09-09 23:39] LABS: Vancomycin, Trough 8.5 ug/mL
[2023-09-09] MEDS ORDERED: Vancomycin (BATCH) 1.25 GM in Premix 1 BAG IVPB SCH (23:59)
[2023-09-10] MEDS: Vancomycin 1 GM in Premix 1 BAG IVPB SCH (00:04)
[2023-09-10] MEDS: Piperacillin/Tazobactam 3.375 GM in Sodium Chloride 0.9% 100 ML IVPB SCH ×2 (01:59→08:14)
[2023-09-10] MEDS: Valproate Sodium 250 mg/5 ml UD Cup PO SCH ×2 (05:39→14:18)
[2023-09-10 06:12] LABS: Anion Gap 15 mmol/L (10-20); BUN (Urea Nitrogen) 11 mg/dL (8.4-25.7); Calc. Creatinine Clearance 91 mL/min (70-130); Calcium 8.8 mg/dL (7.8-10.44); Carbon Dioxide 20 mmol/L (23-31); Chloride 109 mmol/L (98-107); Estimated GFR 98; Glucose 111 mg/dL (80-115); Potassium 3.8 mmol/L (3.5-5.1); Sodium 140 mmol/L (136-145)
[2023-09-10] MEDS: Amlodipine 10 MG TAB PO SCH (08:13)
[2023-09-10] MEDS: Clopidogrel Bisulfate 75 MG TAB PO SCH (08:13)
[2023-09-10] MEDS: levETIRAcetam 500 mg/5 ml Oral Solution PO SCH (08:13)
[2023-09-10] MEDS: Aspirin 325 MG TAB PO SCH (08:13)
[2023-09-10] MEDS: Thiamine 100 MG TAB PO SCH (08:13)
[2023-09-10] MEDS: Escitalopram Oxalate 10 mg Tablet PO SCH (08:13)
[2023-09-10] MEDS: Atorvastatin Calcium 40 MG TAB PO SCH (08:13)
[2023-09-10] MEDS: Famotidine 20 MG TAB PO SCH (08:13)
[2023-09-10] MEDS: Enoxaparin 80 MG (0.8 mL) SYRINGE SC SCH (08:13)
[2023-09-10] MEDS: Lacosamide 50 mg Tablet PO SCH (08:22)
[2023-09-11 02:23] VITALS: BP 139/71; TEMP 97.4
[2023-09-11] MEDS: Enoxaparin 80 MG (0.8 mL) SYRINGE SC SCH (02:38)
[2023-09-11] MEDS: Famotidine 20 MG TAB PO SCH (02:38)
[2023-09-11] MEDS: Lacosamide 50 mg Tablet PO SCH (02:39)
[2023-09-11] MEDS: levETIRAcetam 500 mg/5 ml Oral Solution PO SCH (02:39)
[2023-09-11] MEDS ORDERED: LevoFLOXacin 750 MG TAB PO SCH (06:00)
== END 2023-09-10 21:20 | DRG 689 ==
LOC: ERS 15:24 → 2NO 18:16 → ERHOLD 18:23 → 2NO 09-07 07:10
PROVIDERS: ADMIT Family Medicine; ATTEND Internal Medicine
DX: N39.0 Urinary tract infection, site not specified (principal); G93.41 Metabolic encephalopathy; I10 Essential (primary) hypertension; E78.5 Hyperlipidemia, unspecified
CPT/HCPCS: 36415; 36416; 70450; 71045; 72125; 74177; 80048; 80053; 80202; 81001; 82550; 82565; 83605; 83690; 83735; 83880; 84484; 85025; 87040; 87077; 87086; 87186; 93005; 93306; 96365; 96367; J0696; J1650; J1953; J2543; J3370; J3370-JW; J3490; Q9967

== ENCOUNTER 2023-09-14 19:12 | Inpatient (IN) | payer MEDICARE ==
[2023-09-14 20:17] LABS: #Basophils 0.1 thou/uL (0.0-0.2); #Monocytes 0.7 thou/uL (0.11-0.59); #Neutrophils 9.5 thou/uL (1.40-6.50); %Basophils 0.5 % (0.0-1.0); %Eosinophils 0.2 % (0.0-10.0); %Lymphocytes 12.1 % (21.0-51.0); %Monocytes 5.6 % (0.0-10.0); %Neutrophils 81.3 % (42.0-75.0); Hematocrit 47.8 % (42.0-52.0); Hemoglobin 15.7 g/dL (14.0-18.0); Mean Corpuscular HGB CONC 32.8 g/dL (32.0-36.0); Mean Corpuscular Volume 88.2 fl (78.0-98.0); Mean Platelet Volume 11.4 fL (7.4-10.4); Platelet Count 282 10x3/uL (130-400); RBC Distribution Width 15.1 % (11.5-14.5); Red Blood Cell (RBC) Count 5.42 mill/uL (4.70-6.10); White Blood Cell (WBC) Count 11.7 10x3/uL (4.8-10.8)
[2023-09-14 20:35] LABS: PTT 34.3 sec (22.9-36.1); Prothrombin Time 13.5 sec (12.0-14.7)
[2023-09-14 20:47] LABS: ALT (SGPT) 40 U/L (8-55); AST (SGOT) 40 U/L (5-34); Albumin 4.1 g/dL (3.4-4.8); Alkaline Phosphatase 105 U/L (40-110); Anion Gap 16 mmol/L (10-20); BUN (Urea Nitrogen) 17 mg/dL (8.4-25.7); Bilirubin, Total 0.3 mg/dL (0.2-1.2); Calc. Creatinine Clearance 0 mL/min (70-130); Calcium 9.5 mg/dL (7.8-10.44); Carbon Dioxide 25 mmol/L (23-31); Chloride 106 mmol/L (98-107); Estimated GFR 93; Globulin 3.5 g/dL (2.4-3.5); Glucose 179 mg/dL (80-115); Potassium 3.2 mmol/L (3.5-5.1); Protein, Total 7.6 g/dL (5.8-8.1); Sodium 144 mmol/L (136-145)
[2023-09-14 20:57] LABS: Troponin I 0.049 ng/mL (< 0.028)
[2023-09-14 21:02] LABS: Bacteria/HPF None Seen HPF (None Seen); Bilirubin Negative (Negative); Blood, Urine Negative (Negative); CAUTI Indications for Culture Alt mental st,lethar; Clarity Clear (Clear); Glucose, Urine (Dipstick) 30 mg/dL (Negative); Ketone, Urine 10 mg/dL (Negative); Leukocyte 75 Leu/uL (Negative); Nitrite Negative (Negative); Protein, Urine (Dipstick) 50 mg/dL (Neg-Trace); RBC/HPF 0-3 HPF (0-3); Specific Gravity, Urine 1.019 (1.002-1.036); Squamous Epithelial None Seen HPF (0-3); Urobilinogen Normal mg/dL (Less than 2)
[2023-09-14 21:03] LABS: Urine Culture Reflex No No
[2023-09-14] MEDS ORDERED: Labetalol HCl 100 MG/20 ML VIAL SLOW IVP PRN (23:05)
[2023-09-14] MEDS ORDERED: levETIRAcetam 500 MG (5 mL) VIAL ONE (23:35)
[2023-09-14 23:40] LABS: Magnesium 1.8 mg/dL (1.6-2.6); Phosphorus 3.1 mg/dL (2.3-4.7)
[2023-09-14] MEDS ORDERED: levETIRAcetam 500 MG (5 mL) VIAL SLOW IVP SCH (23:45)
[2023-09-14 23:57] LABS: Lactic Acid 1.2 mmol/L (0.5-2.2)
[2023-09-15 01:05] LABS: Troponin I 0.042 ng/mL (< 0.028)
[2023-09-15] MEDS ORDERED: Potassium Chloride 20 MEQ (100 mL) BAG ONE ×2 (01:34→04:40)
[2023-09-15] MEDS: Potassium Chloride 20 MEQ in Premix 1 BAG IVPB SCH ×2 (01:44→04:52)
[2023-09-15 02:20] LABS: Magnesium 1.8 mg/dL (1.6-2.6); Phosphorus 3.1 mg/dL (2.3-4.7)
[2023-09-15 03:26] VITALS: BMI 20.8
[2023-09-15 04:40] LABS: #Basophils 0.1 thou/uL (0.0-0.2); #Eosinphils 0.1 thou/uL (0.0-0.7); #Monocytes 0.9 thou/uL (0.11-0.59); %Basophils 0.6 % (0.0-1.0); %Eosinophils 0.5 % (0.0-10.0); %Lymphocytes 24.2 % (21.0-51.0); %Monocytes 8.2 % (0.0-10.0); %Neutrophils 66.2 % (42.0-75.0); Hematocrit 44.9 % (42.0-52.0); Hemoglobin 14.4 g/dL (14.0-18.0); Mean Corpuscular HGB CONC 32.1 g/dL (32.0-36.0); Mean Corpuscular Hemoglobin 28.3 pg (27.0-31.0); Mean Corpuscular Volume 88.4 fl (78.0-98.0); Mean Platelet Volume 11.7 fL (7.4-10.4); Platelet Count 283 10x3/uL (130-400); Red Blood Cell (RBC) Count 5.08 mill/uL (4.70-6.10); White Blood Cell (WBC) Count 10.5 10x3/uL (4.8-10.8)
[2023-09-15 05:02] LABS: ALT (SGPT) 29 U/L (8-55); AST (SGOT) 24 U/L (5-34); Albumin 3.4 g/dL (3.4-4.8); Alkaline Phosphatase 99 U/L (40-110); Anion Gap 13 mmol/L (10-20); BUN (Urea Nitrogen) 13 mg/dL (8.4-25.7); Bilirubin, Total 0.3 mg/dL (0.2-1.2); CK (CPK) 60 U/L (30-200); Calc. Creatinine Clearance 86 mL/min (70-130); Calcium 8.8 mg/dL (7.8-10.44); Carbon Dioxide 24 mmol/L (23-31); Cardiac Risk 2.8 (Less than 4.5); Chloride 108 mmol/L (98-107); Cholesterol 122 mg/dl (< 200 Desired); Estimated GFR 98; Globulin 3.2 g/dL (2.4-3.5); Glucose 89 mg/dL (80-115); HDL Cholesterol 44 mg/dL (>60 Neg Risk); LDL Cholesterol, Calculated 62 mg/dL; Potassium 3.9 mmol/L (3.5-5.1); Protein, Total 6.6 g/dL (5.8-8.1); Sodium 141 mmol/L (136-145); Triglycerides 79 mg/dL (Less than 150)
[2023-09-15 05:19] LABS: Troponin I 0.027 ng/mL (< 0.028)
[2023-09-15] MEDS ORDERED: Clopidogrel Bisulfate 75 MG TAB ONE (08:01)
[2023-09-15] MEDS ORDERED: Lactulose 20 GM (30 mL) UDCUP ONE (08:01)
[2023-09-15] MEDS ORDERED: Thiamine 100 MG TAB ONE (08:01)
[2023-09-15] MEDS ORDERED: Famotidine 20 MG TAB ONE (08:01)
[2023-09-15] MEDS ORDERED: Aspirin 325 MG TAB ONE (08:01)
[2023-09-15] MEDS ORDERED: Enoxaparin 40 MG (0.4 mL) SYRINGE ONE (08:02)
[2023-09-15] MEDS: Aspirin 325 MG TAB PO SCH (08:49)
[2023-09-15] MEDS: Clopidogrel Bisulfate 75 MG TAB PO SCH (08:50)
[2023-09-15] MEDS: Thiamine 100 MG TAB PO SCH (08:51)
[2023-09-15] MEDS: Famotidine 20 MG TAB PO SCH ×2 (08:51→21:27)
[2023-09-15] MEDS: Enoxaparin 40 MG (0.4 mL) SYRINGE SC SCH (08:59)
[2023-09-15] MEDS: Escitalopram Oxalate 10 mg Tablet PO SCH (08:59)
[2023-09-15] MEDS ORDERED: Cefepime 2 GM in Sodium Chloride 0.9% 100 ML IVPB SCH (09:00)
[2023-09-15] MEDS ORDERED: Lacosamide 50 MG in Sodium Chloride 0.9% 50 ML IVPB SCH (09:00)
[2023-09-15] MEDS ORDERED: LACOSAMIDE 200 MG PO SCH (09:00)
[2023-09-15] MEDS ORDERED: Lactulose 20 GM (30 mL) UDCUP PO SCH (09:00)
[2023-09-15 13:12] LABS: Troponin I 0.023 ng/mL (< 0.028)
[2023-09-15] MEDS: Valproate Sodium 250 mg/5 ml UD Cup PER TUBE SCH ×2 (14:31→21:27)
[2023-09-15] MEDS ORDERED: HYDROcodone/Acetaminophen 5/325 mg Tablet PER TUBE PRN (21:10)
[2023-09-15] MEDS ORDERED: Acetaminophen 325 MG TAB PER TUBE PRN (21:14)
[2023-09-15] MEDS: Lacosamide 50 mg Tablet PER TUBE SCH (21:27)
[2023-09-15] MEDS: levETIRAcetam 500 mg/5 ml Oral Solution PO SCH (21:27)
[2023-09-15] MEDS: Atorvastatin Calcium 40 MG TAB PO SCH (21:27)
[2023-09-15] MEDS: Modafinil 100 MG TAB PER TUBE SCH (21:27)
[2023-09-16 07:00] LABS: #Basophils 0.1 thou/uL (0.0-0.2); #Eosinphils 0.2 thou/uL (0.0-0.7); #Monocytes 0.5 thou/uL (0.11-0.59); #Neutrophils 3.7 thou/uL (1.40-6.50); %Basophils 0.7 % (0.0-1.0); %Eosinophils 2.2 % (0.0-10.0); %Lymphocytes 37.3 % (21.0-51.0); %Monocytes 7.6 % (0.0-10.0); %Neutrophils 51.9 % (42.0-75.0); Hematocrit 47.3 % (42.0-52.0); Hemoglobin 14.6 g/dL (14.0-18.0); Mean Corpuscular HGB CONC 30.9 g/dL (32.0-36.0); Mean Corpuscular Hemoglobin 28.3 pg (27.0-31.0); Mean Corpuscular Volume 91.7 fl (78.0-98.0); Mean Platelet Volume 11.5 fL (7.4-10.4); Platelet Count 274 10x3/uL (130-400); Red Blood Cell (RBC) Count 5.16 mill/uL (4.70-6.10); White Blood Cell (WBC) Count 7.1 10x3/uL (4.8-10.8)
[2023-09-16 07:22] LABS: Anion Gap 13 mmol/L (10-20); BUN (Urea Nitrogen) 15 mg/dL (8.4-25.7); Calc. Creatinine Clearance 88 mL/min (70-130); Calcium 9.3 mg/dL (7.8-10.44); Carbon Dioxide 27 mmol/L (23-31); Chloride 109 mmol/L (98-107); Estimated GFR 99; Glucose 84 mg/dL (80-115); Potassium 3.6 mmol/L (3.5-5.1); Sodium 145 mmol/L (136-145)
[2023-09-16] MEDS ORDERED: FLU VACC QS2023(65UP)/MF59C/PF 60 MCG/0.5 ML SYRINGE IM ONE (09:00)
[2023-09-16] MEDS: Valproate Sodium 250 mg/5 ml UD Cup PER TUBE SCH ×3 (09:17→21:34)
[2023-09-16] MEDS: Enoxaparin 40 MG (0.4 mL) SYRINGE SC SCH (09:18)
[2023-09-16] MEDS: Aspirin 325 MG TAB PO SCH (09:19)
[2023-09-16] MEDS: Clopidogrel Bisulfate 75 MG TAB PO SCH (09:19)
[2023-09-16] MEDS: Modafinil 100 MG TAB PER TUBE SCH (09:19)
[2023-09-16] MEDS: Famotidine 20 MG TAB PO SCH ×2 (09:19→21:33)
[2023-09-16] MEDS: Escitalopram Oxalate 10 mg Tablet PO SCH (09:19)
[2023-09-16] MEDS: levETIRAcetam 500 mg/5 ml Oral Solution PO SCH ×2 (09:19→21:34)
[2023-09-16] MEDS: Lacosamide 50 mg Tablet PER TUBE SCH ×2 (09:19→21:33)
[2023-09-16] MEDS: Thiamine 100 MG TAB PO SCH (09:19)
[2023-09-16] MEDS: Atorvastatin Calcium 40 MG TAB PO SCH (21:33)
[2023-09-17] MEDS: Modafinil 100 MG TAB PER TUBE SCH ×3 (00:12→21:33)
[2023-09-17] MEDS: Aspirin 325 MG TAB PO SCH (09:15)
[2023-09-17] MEDS: levETIRAcetam 500 mg/5 ml Oral Solution PO SCH ×2 (09:16→21:34)
[2023-09-17] MEDS: Lacosamide 50 mg Tablet PER TUBE SCH ×2 (09:16→21:34)
[2023-09-17] MEDS: Famotidine 20 MG TAB PO SCH ×2 (09:16→21:33)
[2023-09-17] MEDS: Valproate Sodium 250 mg/5 ml UD Cup PER TUBE SCH ×3 (09:16→21:34)
[2023-09-17] MEDS: Clopidogrel Bisulfate 75 MG TAB PO SCH (09:16)
[2023-09-17] MEDS: Escitalopram Oxalate 10 mg Tablet PO SCH (09:16)
[2023-09-17] MEDS: Thiamine 100 MG TAB PO SCH (09:16)
[2023-09-17] MEDS: Enoxaparin 40 MG (0.4 mL) SYRINGE SC SCH (11:07)
[2023-09-17] MEDS: Atorvastatin Calcium 40 MG TAB PO SCH (21:34)
[2023-09-18 07:19] LABS: #Basophils 0.1 thou/uL (0.0-0.2); #Eosinphils 0.4 thou/uL (0.0-0.7); #Monocytes 0.5 thou/uL (0.11-0.59); %Basophils 0.7 % (0.0-1.0); %Eosinophils 4.7 % (0.0-10.0); %Lymphocytes 33.9 % (21.0-51.0); %Neutrophils 53.6 % (42.0-75.0); Hematocrit 42.8 % (42.0-52.0); Hemoglobin 13.6 g/dL (14.0-18.0); Mean Corpuscular HGB CONC 31.8 g/dL (32.0-36.0); Mean Corpuscular Hemoglobin 28.3 pg (27.0-31.0); Mean Corpuscular Volume 89.2 fl (78.0-98.0); Mean Platelet Volume 10.9 fL (7.4-10.4); Platelet Count 258 10x3/uL (130-400); White Blood Cell (WBC) Count 7.5 10x3/uL (4.8-10.8)
[2023-09-18 07:39] LABS: Phosphorus 2.9 mg/dL (2.3-4.7)
[2023-09-18 07:42] LABS: Anion Gap 11 mmol/L (10-20); BUN (Urea Nitrogen) 15 mg/dL (8.4-25.7); Calc. Creatinine Clearance 84 mL/min (70-130); Calcium 8.7 mg/dL (7.8-10.44); Carbon Dioxide 30 mmol/L (23-31); Chloride 104 mmol/L (98-107); Estimated GFR 97; Glucose 98 mg/dL (80-115); Magnesium 1.7 mg/dL (1.6-2.6); Potassium 3.5 mmol/L (3.5-5.1); Sodium 141 mmol/L (136-145)
[2023-09-18] MEDS: Escitalopram Oxalate 10 mg Tablet PO SCH (08:50)
[2023-09-18] MEDS: Aspirin 81 mg Enteric Coated Tablet PO SCH (08:50)
[2023-09-18] MEDS: Thiamine 100 MG TAB PO SCH (08:50)
[2023-09-18] MEDS: Heparin 5,000 UNITS/ML VIAL SC SCH ×2 (08:50→20:24)
[2023-09-18] MEDS: Clopidogrel Bisulfate 75 MG TAB PO SCH (08:50)
[2023-09-18] MEDS: Famotidine 20 MG TAB PO SCH ×2 (08:50→20:24)
[2023-09-18] MEDS: levETIRAcetam 500 mg/5 ml Oral Solution PO SCH ×2 (08:51→20:23)
[2023-09-18] MEDS: Lacosamide 50 mg Tablet PER TUBE SCH ×2 (08:51→20:24)
[2023-09-18] MEDS: Modafinil 100 MG TAB PER TUBE SCH ×2 (09:27→20:24)
[2023-09-18] MEDS ORDERED: Magnesium 2 GM/50 ML(in water) 2 GM in Premix 1 BAG IVPB SCH (19:30)
[2023-09-18] MEDS ORDERED: Potassium Bicarbonate/Cit Ac 25 MEQ TAB PO SCH (19:30)
[2023-09-18] MEDS ORDERED: Potassium Bicarbonate/Cit Ac 20 MEQ TAB PO SCH (19:30)
[2023-09-18] MEDS: Atorvastatin Calcium 40 MG TAB PO SCH (20:24)
[2023-09-19 04:54] LABS: #Basophils 0.1 thou/uL (0.0-0.2); #Eosinphils 0.2 thou/uL (0.0-0.7); #Monocytes 0.7 thou/uL (0.11-0.59); #Neutrophils 4.5 thou/uL (1.40-6.50); %Basophils 0.7 % (0.0-1.0); %Eosinophils 2.2 % (0.0-10.0); %Lymphocytes 22.2 % (21.0-51.0); %Monocytes 9.7 % (0.0-10.0); %Neutrophils 64.8 % (42.0-75.0); Hematocrit 46.5 % (42.0-52.0); Hemoglobin 14.9 g/dL (14.0-18.0); Mean Corpuscular Hemoglobin 28.1 pg (27.0-31.0); Mean Corpuscular Volume 87.7 fl (78.0-98.0); Mean Platelet Volume 11.2 fL (7.4-10.4); Platelet Count 212 10x3/uL (130-400); White Blood Cell (WBC) Count 6.9 10x3/uL (4.8-10.8)
[2023-09-19 05:05] LABS: Anion Gap 14 mmol/L (10-20); BUN (Urea Nitrogen) 12 mg/dL (8.4-25.7); Calc. Creatinine Clearance 89 mL/min (70-130); Calcium 8.8 mg/dL (7.8-10.44); Carbon Dioxide 22 mmol/L (23-31); Chloride 105 mmol/L (98-107); Estimated GFR 99; Glucose 97 mg/dL (80-115); Magnesium 2.1 mg/dL (1.6-2.6); Phosphorus 2.5 mg/dL (2.3-4.7); Potassium 4.1 mmol/L (3.5-5.1); Sodium 137 mmol/L (136-145)
[2023-09-19 05:19] LABS: HBCM Index 0.07 S/CO (0-0.79); HBSAg Index 0.23 S/CO (0-0.99); Hep A IgM AB Non-Reactive S/CO (NonReactive); Hep A IgM S/CO 0.19 S/CO (0-0.79); Hep B Surf Ag Non-Reactive S/CO (NonReactive); Hep C IgG Ab Non-Reactive S/CO (NonReactive); Hep C Index 0.07 S/CO (0-0.79); Hepatitis B Core IgM Abs Non-Reactive S/CO (NonReactive)
[2023-09-19] MEDS: levETIRAcetam 500 mg/5 ml Oral Solution PO SCH ×2 (10:42→21:26)
[2023-09-19] MEDS: Potassium Bicarbonate/Cit Ac 20 MEQ TAB PO SCH (10:43)
[2023-09-19] MEDS: Clopidogrel Bisulfate 75 MG TAB PO SCH (10:43)
[2023-09-19] MEDS: Famotidine 20 MG TAB PO SCH ×2 (10:43→21:27)
[2023-09-19] MEDS: Aspirin 81 mg Enteric Coated Tablet PO SCH (10:43)
[2023-09-19] MEDS: Lacosamide 50 mg Tablet PER TUBE SCH ×2 (10:43→21:27)
[2023-09-19] MEDS: Escitalopram Oxalate 10 mg Tablet PO SCH (10:43)
[2023-09-19] MEDS: Thiamine 100 MG TAB PO SCH (10:43)
[2023-09-19] MEDS: Heparin 5,000 UNITS/ML VIAL SC SCH ×2 (10:46→21:27)
[2023-09-19] MEDS: Modafinil 100 MG TAB PER TUBE SCH ×2 (12:37→21:31)
[2023-09-19] MEDS: Atorvastatin Calcium 40 MG TAB PO SCH (21:27)
[2023-09-20] MEDS: Modafinil 100 MG TAB PER TUBE SCH (08:48)
[2023-09-20] MEDS: Lacosamide 50 mg Tablet PER TUBE SCH (08:49)
[2023-09-20] MEDS: Escitalopram Oxalate 10 mg Tablet PO SCH (08:49)
[2023-09-20] MEDS: Thiamine 100 MG TAB PO SCH (08:49)
[2023-09-20] MEDS: Potassium Bicarbonate/Cit Ac 20 MEQ TAB PO SCH (08:49)
[2023-09-20] MEDS: Clopidogrel Bisulfate 75 MG TAB PO SCH (08:50)
[2023-09-20] MEDS: Aspirin 81 mg Enteric Coated Tablet PO SCH (08:50)
[2023-09-20] MEDS: Famotidine 20 MG TAB PO SCH (08:51)
[2023-09-20] MEDS: levETIRAcetam 500 mg/5 ml Oral Solution PO SCH (08:51)
[2023-09-20] MEDS: Heparin 5,000 UNITS/ML VIAL SC SCH (08:52)
[2023-09-20] MEDS ORDERED: Polyethylene Glycol 3350 17 GM Packet PO SCH (09:00)
[2023-09-20] MEDS ORDERED: Senokot S 8.6-50 MG TAB PO SCH (09:00)
[2023-09-20 12:05] VITALS: BP 124/73; TEMP 98.4
[2023-09-20] MEDS ORDERED: Nystatin Powder 15 GM BOT TOP SCH (21:00)
== END 2023-09-20 15:34 | DRG 91 ==
LOC: ERS 19:12 → ERHOLD 23:00 → 2SE 23:00
PROVIDERS: ADMIT Internal Medicine; ATTEND Internal Medicine
PROC: 4A10X4Z Monitoring of Central Nervous Electrical Activity, External Approach (ICD-10-PCS; principal; 2023-09-20)
DX: G92.8 Other toxic encephalopathy (principal); I21.A1 Myocardial infarction type 2; N39.0 Urinary tract infection, site not specified; E72.4 Disorders of ornithine metabolism; E87.20 Acidosis, unspecified; R56.9 Unspecified convulsions; Z66 Do not resuscitate; B96.5 Pseudomonas (aeruginosa) (mallei) (pseudomallei) as the cause of diseases classified elsewhere; E87.6 Hypokalemia; R53.81 Other malaise; I25.10 Atherosclerotic heart disease of native coronary artery without angina pectoris; I10 Essential (primary) hypertension; E78.5 Hyperlipidemia, unspecified; I45.10 Unspecified right bundle-branch block; E11.9 Type 2 diabetes mellitus without complications; R13.10 Dysphagia, unspecified; R33.9 Retention of urine, unspecified; K21.9 Gastro-esophageal reflux disease without esophagitis; F39 Unspecified mood [affective] disorder; Z79.899 Other long term (current) drug therapy; Z79.82 Long term (current) use of aspirin; Z86.73 Personal history of transient ischemic attack (TIA), and cerebral infarction without residual deficits; E83.42 Hypomagnesemia; E86.0 Dehydration
CPT/HCPCS: 36415; 36416; 70450; 70551; 71045; 74176; 74230; 76705; 80048; 80053; 80061; 80074; 80177; 81001; 82140; 82550; 83605; 83735; 83880; 84100; 84145; 84146; 84484; 85025; 85610; 85730; 87040; 87086; 93005; 95711; 95819; C9254; J1644; J1650; J1953; J3411; J3475; J3480

== ENCOUNTER 2024-02-03 03:05 | Emergency (ER) | payer MEDICARE, OTHER ==
[2024-02-03 05:17] LABS: #Basophils 0.05 10x3/uL (0.0-0.2); %Basophils 0.4 % (0.0-1.0); %Eosinophils 1.1 % (0.0-10.0); %Lymphocytes 13.6 % (21.0-51.0); %Monocytes 6.1 % (0.0-10.0); %Neutrophils 78.3 % (42.0-75.0); Hematocrit 47.1 % (42.0-52.0); Hemoglobin 15.9 g/dL (14.0-18.0); Mean Corpuscular HGB CONC 33.8 g/dL (32.0-36.0); Mean Corpuscular Hemoglobin 30.5 pg (27.0-31.0); Mean Corpuscular Volume 90.4 fL (78.0-98.0); Mean Platelet Volume 10.4 fL (7.4-10.4); Platelet Count 251 10x3/uL (130-400); RBC Distribution Width 12.9 % (11.5-14.5); Red Blood Cell (RBC) Count 5.21 mill/uL (4.70-6.10)
[2024-02-03 05:50] LABS: ALT (SGPT) 61 U/L (8-55); AST (SGOT) 37 U/L (5-34); Albumin 3.8 g/dL (3.4-4.8); Alkaline Phosphatase 154 U/L (40-110); Anion Gap 16 mmol/L (10-20); BUN (Urea Nitrogen) 10 mg/dL (8.4-25.7); Bilirubin, Total 0.4 mg/dL (0.2-1.2); Calc. Creatinine Clearance 0 mL/min (70-130); Calcium 9.1 mg/dL (7.8-10.44); Carbon Dioxide 28 mmol/L (23-31); Chloride 104 mmol/L (98-107); Estimated GFR 96; Globulin 3.2 g/dL (2.4-3.5); Glucose 115 mg/dL (80-115); Potassium 3.7 mmol/L (3.5-5.1); Sodium 144 mmol/L (136-145)
[2024-02-03 05:59] LABS: Prothrombin Time 12.8 sec (12.0-14.7)
[2024-02-03 07:17] LABS: Bilirubin Negative (Negative); Blood, Urine 2+ (Negative); CAUTI Indications for Culture Acute Hematuria; Clarity Turbid (Clear); Glucose, Urine (Dipstick) Normal (Negative); Ketone, Urine 10 mg/dL (Negative); Leukocyte 500 Leu/uL (Negative); Nitrite Negative (Negative); Protein, Urine (Dipstick) 20 mg/dL (Neg-Trace); Specific Gravity, Urine 1.019 (1.002-1.036); Squamous Epithelial None Seen HPF (0-3); Urobilinogen Normal mg/dL (Less than 2)
[2024-02-03 07:28] LABS: Bacteria/HPF 2+ HPF (None Seen); WBC/HPF 21-50 HPF (0-3)
[2024-02-03 07:29] LABS: Urine Culture Reflex Yes Yes
[2024-02-03] MEDS ORDERED: Sodium Chloride 0.9% 100 ML ONE (07:55)
[2024-02-03] MEDS ORDERED: cefTRIAXone (ROCEPHIN) 1 GM VIAL ONE (07:55)
== END 2024-02-03 09:30 | disposition home or self-care (01) ==
LOC: ERS 03:05
DX: S22.028A Other fracture of second thoracic vertebra, initial encounter for closed fracture (principal); S22.038A Other fracture of third thoracic vertebra, initial encounter for closed fracture; N39.0 Urinary tract infection, site not specified; I10 Essential (primary) hypertension; E11.9 Type 2 diabetes mellitus without complications; Z55.6 Problems related to health literacy; W19.XXXA Unspecified fall, initial encounter; Z79.82 Long term (current) use of aspirin; Z79.899 Other long term (current) drug therapy
CPT/HCPCS: 70450; 71045; 72125; 72128; 72131; 72170; 73060; 73080; 80053; 81001; 85025; 85610; 87077; 87086; 93005; 96365; 99285; J0696; J3490; 87186

== ENCOUNTER 2024-03-02 09:02 | Inpatient (IN) | payer MEDICARE, OTHER ==
[2024-03-02] MEDS ORDERED: Ketorolac Tromethamine 30 MG (1 mL) VIAL ONE (11:36)
[2024-03-02 11:50] LABS: #Basophils 0.04 10x3/uL (0.0-0.2); %Basophils 0.4 % (0.0-1.0); %Eosinophils 0.9 % (0.0-10.0); %Lymphocytes 29.1 % (21.0-51.0); %Monocytes 8.7 % (0.0-10.0); %Neutrophils 60.3 % (42.0-75.0); Hematocrit 44.6 % (42.0-52.0); Hemoglobin 14.8 g/dL (14.0-18.0); Mean Corpuscular HGB CONC 33.2 g/dL (32.0-36.0); Mean Corpuscular Volume 90.3 fL (78.0-98.0); Mean Platelet Volume 10.5 fL (7.4-10.4); Platelet Count 230 10x3/uL (130-400); RBC Distribution Width 13.2 % (11.5-14.5); Red Blood Cell (RBC) Count 4.94 mill/uL (4.70-6.10)
[2024-03-02 12:06] LABS: ALT (SGPT) 22 U/L (8-55); AST (SGOT) 14 U/L (5-34); Albumin 3.7 g/dL (3.4-4.8); Alkaline Phosphatase 144 U/L (40-110); Anion Gap 12 mmol/L (10-20); BUN (Urea Nitrogen) 13 mg/dL (8.4-25.7); Bilirubin, Total 0.4 mg/dL (0.2-1.2); Calc. Creatinine Clearance 0 mL/min (70-130); Calcium 9.3 mg/dL (7.8-10.44); Carbon Dioxide 25 mmol/L (23-31); Chloride 109 mmol/L (98-107); Estimated GFR 95; Globulin 3.6 g/dL (2.4-3.5); Glucose 175 mg/dL (80-115); Potassium 3.9 mmol/L (3.5-5.1); Protein, Total 7.3 g/dL (5.8-8.1); Sodium 142 mmol/L (136-145)
[2024-03-02] MEDS ORDERED: Morphine 2 MG/ML VIAL SLOW IVP PRN (12:23)
[2024-03-02] MEDS ORDERED: HumaLOG 300 UNITS/3 ML VIAL SC PRN (12:23)
[2024-03-02] MEDS ORDERED: Glucagon 1 MG/ML KIT IM PRN (12:23)
[2024-03-02] MEDS ORDERED: Ondansetron PF 4 MG/2 ML Vial IVP PRN (12:23)
[2024-03-02] MEDS ORDERED: Dextrose 50% Abboject 50 ML SYRINGE SLOW IVP PRN (12:23)
[2024-03-02] MEDS ORDERED: hydrALAZINE 20 MG/ML VIAL SLOW IVP PRN (12:23)
[2024-03-02] MEDS ORDERED: Dextrose 5% in Water 1,000 ML IV PRN (12:23)
[2024-03-02] MEDS ORDERED: Ipratropium/Albuterol 3 ML NEB NEB PRN (12:23)
[2024-03-02] MEDS ORDERED: Cyclobenzaprine 10 MG TAB PO PRN (12:26)
[2024-03-02 14:12] VITALS: BMI 26.2
[2024-03-02] MEDS: Lactulose 20 GM (30 mL) UDCUP PO SCH (15:41)
[2024-03-02] MEDS: Sodium Chloride 0.9% 1,000 ML IV SCH (16:22)
[2024-03-02] MEDS: Acetaminophen 325 MG TAB PO SCH (18:39)
[2024-03-02] MEDS: Famotidine/PF 20 mg/2ml Vial SLOW IVP SCH (20:58)
[2024-03-02] MEDS: Lacosamide 50 mg Tablet PO SCH (20:59)
[2024-03-02] MEDS: Senokot S 8.6-50 MG TAB PO SCH (20:59)
[2024-03-02] MEDS ORDERED: LACOSAMIDE 200 MG PO SCH (21:00)
[2024-03-02] MEDS: Insulin Lispro 100 UNIT/ML 10 ML VIAL SC PRN (22:06)
[2024-03-02] MEDS: Modafinil 100 MG TAB PO SCH (22:14)
[2024-03-03 05:21] LABS: #Basophils 0.04 10x3/uL (0.0-0.2); %Basophils 0.5 % (0.0-1.0); %Eosinophils 1.5 % (0.0-10.0); %Lymphocytes 27.6 % (21.0-51.0); %Monocytes 8.4 % (0.0-10.0); %Neutrophils 61.6 % (42.0-75.0); Hematocrit 36.3 % (42.0-52.0); Hemoglobin 12.1 g/dL (14.0-18.0); Mean Corpuscular HGB CONC 33.3 g/dL (32.0-36.0); Mean Corpuscular Hemoglobin 29.9 pg (27.0-31.0); Mean Corpuscular Volume 89.6 fL (78.0-98.0); Mean Platelet Volume 10.6 fL (7.4-10.4); Platelet Count 204 10x3/uL (130-400); RBC Distribution Width 13.2 % (11.5-14.5); Red Blood Cell (RBC) Count 4.05 mill/uL (4.70-6.10)
[2024-03-03 05:36] LABS: Anion Gap 10 mmol/L (10-20); BUN (Urea Nitrogen) 11 mg/dL (8.4-25.7); Calc. Creatinine Clearance 117 mL/min (70-130); Calcium 8.3 mg/dL (7.8-10.44); Carbon Dioxide 24 mmol/L (23-31); Chloride 111 mmol/L (98-107); Estimated GFR 100; Glucose 130 mg/dL (80-115); PTT 35.5 sec (22.9-36.1); Prothrombin Time 13.4 sec (12.0-14.7); Sodium 141 mmol/L (136-145)
[2024-03-03] MEDS ORDERED: Thiamine 100 MG TAB PO SCH (09:00)
[2024-03-03] MEDS: Potassium Bicarbonate/Cit Ac 20 MEQ TAB PO SCH (09:03)
[2024-03-03] MEDS: Escitalopram Oxalate 10 mg Tablet PO SCH (09:04)
[2024-03-03] MEDS: levETIRAcetam 500 mg/5 ml Oral Solution PO SCH (09:04)
[2024-03-03] MEDS: Thiamine 100 MG TAB PO SCH (09:04)
[2024-03-03] MEDS: Polyethylene Glycol 3350 17 GM Packet PO SCH (09:07)
[2024-03-03] MEDS: Acetaminophen/Codeine 30-300mg Tablet PO PRN (20:15)
[2024-03-04 16:07] VITALS: BP 146/87; TEMP 98.4
[2024-03-05] MEDS ORDERED: Clopidogrel Bisulfate 75 MG TAB PO SCH (09:00)
[2024-03-05] MEDS ORDERED: Aspirin Chewable 81 MG TAB PO SCH (09:00)
== END 2024-03-04 17:45 | DRG 534 ==
LOC: ERS 09:02 → SJJU 13:08
PROVIDERS: ADMIT Surgery; ATTEND Surgery
DX: S72.92XA Unspecified fracture of left femur, initial encounter for closed fracture (principal); M97.02XA Periprosthetic fracture around internal prosthetic left hip joint, initial encounter; I69.354 Hemiplegia and hemiparesis following cerebral infarction affecting left non-dominant side; I69.391 Dysphagia following cerebral infarction; I10 Essential (primary) hypertension; E78.5 Hyperlipidemia, unspecified; E11.9 Type 2 diabetes mellitus without complications; K21.9 Gastro-esophageal reflux disease without esophagitis; I25.10 Atherosclerotic heart disease of native coronary artery without angina pectoris; Z95.5 Presence of coronary angioplasty implant and graft; R13.10 Dysphagia, unspecified; Z79.02 Long term (current) use of antithrombotics/antiplatelets; Z79.82 Long term (current) use of aspirin; Z79.899 Other long term (current) drug therapy; W01.0XXA Fall on same level from slipping, tripping and stumbling without subsequent striking against object, initial encounter; Y93.89 Activity, other specified; Y92.098 Other place in other non-institutional residence as the place of occurrence of the external cause
CPT/HCPCS: 36415; 36416; 71045; 72170; 80048; 80053; 85025; 85610; 85730; 93005; 96374; G0390; J1815; J1885; J7050; S0028

== ENCOUNTER 2024-04-21 12:35 | Emergency (ER) | payer MEDICARE | END 2024-04-21 15:32 | disposition home or self-care (01) | LOC: ERS 12:35 | DX: S70.01XA Contusion of right hip, initial encounter (principal); I10 Essential (primary) hypertension; E11.9 Type 2 diabetes mellitus without complications; Z79.82 Long term (current) use of aspirin; W19.XXXA Unspecified fall, initial encounter | CPT/HCPCS: 72170 ==